=== PATIENT | female | born 1955 | race African-American/Black ===

== ENCOUNTER 2017-10-31 11:41 | Inpatient (IN) | payer BC, MEDICAID ==
[~2017-10-31] VITALS: Ht 160 cm; Wt 84.9 kg
--- NOTE | 2017-10-31 11:45 | NUR ---
PT TO ED ROOM 03. BIB RA FOR L SIDED CHEST PAIN AND INCREASING SOB. [id number]. A/A/O. SIDE RAILS UP. HOB ELEVATED. CONNECTED TO MONITOR. AWAITING EVALUATION BY ER PROVIDER.
--- NOTE | 2017-10-31 12:10 | NUR ---
AUTOM[employer]BILE SEAT COVER INSTALLER AT BEDSIDE FOR BLOOD DRAW.
[2017-10-31 12:11] LABS: BASOPHILS # (AUTO) 0.1 /CMM (0.0-0.2); BASOPHILS % (AUTO) 0.6 % (0.0-2.0); EOSINOPHILS # (AUTO) 0.4 /CMM (0.0-0.7); HEMATOCRIT 39 % (33-45); HEMOGLOBIN 13.2 g/dL (11.5-14.8); LYMPHOCYTES # (AUTO) 2.4 /CMM (0.8-4.8); LYMPHOCYTES % (AUTO) 24.7 % (20.0-44.0); MEAN CORPUSCULAR HEMOGLOBIN 28 PG (26.0-33.0); MEAN CORPUSCULAR HGB CONC 34 g/dl (31.0-36.0); MEAN CORPUSCULAR VOLUME 83 fL (82-100); MONOCYTES # (AUTO) 0.8 /CMM (0.1-1.30); NEUTROPHILS # (AUTO) 6.1 /CMM (1.8-8.9); NEUTROPHILS % (AUTO) 62.7 % (43.0-81.0); PLATELET COUNT (AUTO) 308 /CMM (150-450); RDW COEFFICIENT OF VARIATION 13.6 (11.5-15.0); WHITE BLOOD COUNT (AUTO) 9.8 K/uL (4.3-11.0)
[2017-10-31 12:23] LABS: CALCIUM, SERUM 9.4 mg/dL (8.5-10.1); CARBON DIOXIDE 25 mmol/L (21-32); CHLORIDE 105 mmol/L (98-107); CREATININE 1.3 mg/dL (0.6-1.3); GLUCOSE 184 mg/dL (74-106); POTASSIUM 3.6 mmol/L (3.5-5.1); SODIUM SERUM 137 mmol/L (136-145); UREA NITROGEN, BLOOD 18 mg/dL (7-18)
[2017-10-31 12:28] LABS: INR 0.9 (0.87-1.13)
[2017-10-31 12:32] LABS: TROPONIN I < 0.017 ng/mL (0.00-0.056)
[2017-10-31] MEDS ORDERED: FUROSEMIDE 40 MG/4 ML VIAL ONE (13:26)
[2017-10-31] MEDS ORDERED: NITROGLYCERIN PACKET 1 GM PACKET ONE (13:27)
[2017-10-31] MEDS ORDERED: ASPIRIN 81 MG TAB.CHEW ONE (13:27)
[2017-10-31] MEDS ORDERED: ASPIRIN 81 MG TAB.CHEW PO ONE (13:30)
[2017-10-31] MEDS ORDERED: NITROGLYCERIN PACKET 1 GM PACKET TOP ONE (13:30)
[2017-10-31] MEDS ORDERED: FUROSEMIDE 40 MG/4 ML VIAL IV ONE (13:30)
[2017-10-31] MEDS ORDERED: METO25TA20 PO (13:34)
[2017-10-31] MEDS ORDERED: CLOP75TA15 PO (13:34)
[2017-10-31] MEDS ORDERED: POTA10TA15 PO (13:34)
[2017-10-31] MEDS ORDERED: FURO-145 PO (13:34)
[2017-10-31] MEDS ORDERED: INSU100V7 SQ (13:34)
[2017-10-31] MEDS ORDERED: HYDR-4076 PO (13:34)
--- NOTE | 2017-10-31 13:44 | NUR ---
REPORT GIVEN TO MARTÍN [id number] TELE
[2017-10-31 14:00] VITALS: BP 153/90
--- NOTE | 2017-10-31 14:00 | NUR ---
RADAR TESTER RECEIVED PT. FROM EMERGENCY ROOM A&OX4. TELE MONITOR APPLIED TO PT. TELE READING IS SINUS RHYTHM 69 BPM WITH INVERTED T WAVES. INSTRUCTED PT. TO USE CALL LIGHT FOR ASSISTANCE. WILL CONTINUE TO ASSESS AND MONITOR.
[2017-10-31 15:30] VITALS: BP 153/90
[2017-10-31] MEDS ORDERED: DEXTROSE 50%-WATER 50 ML DISP.SYRIN IV PRN (15:30)
[2017-10-31] MEDS ORDERED: ONDANSETRON HCL/PF 4 MG/2 ML VIAL IVP PRN (15:30)
[2017-10-31] MEDS ORDERED: DOCUSATE SODIUM 100 MG CAPSULE PO PRN (15:30)
[2017-10-31] MEDS ORDERED: NITROGLYCERIN 0.4 MG/TAB BOTTLE SL PRN (15:30)
[2017-10-31] MEDS ORDERED: ACETAMINOPHEN 325 MG TABLET PO PRN (15:30)
[2017-10-31] MEDS ORDERED: MORPHINE SULFATE INJ 4 MG/ML DISP.SYRIN IV PRN (15:30)
[2017-10-31] MEDS ORDERED: LORAZEPAM 1 MG TABLET PO PRN (15:30)
[2017-10-31] MEDS ORDERED: *INSULIN REGULAR(HUMULIN R)HUM 100 UNIT/ML VIAL SQ PRN (15:30)
[2017-10-31] MEDS: METOPROLOL TARTRATE 25 MG TABLET PO SCH (16:52)
[2017-10-31] MEDS: BLOOD SUGAR DIAGNOSTIC 1 EACH STRIP IN SCH ×2 (17:45→21:31)
[2017-10-31] MEDS: INSULIN REGULAR, HUMAN 100 UNIT/ML 3 ML VIAL SQ PRN (17:48)
--- NOTE | 2017-10-31 19:00 | NUR ---
RN NOTES PT. HAD AN EPISODE OF LEFT SIDED CHEST PAIN BP WAS 81/49 PULSE 54 OXYGEN 97%, TEMP. 98.0F. PT. WAS POSITION FLAT ON THE BED. CHARGE NURSE WAS INFORMED, AND RECOMMENDED TO START PT. ON IV FLUIDS BOLUS. AFTER 5 MIN, BP RECHECKED WAS 116/50. PT. C/O SHARP PAIN IN MEDIAL CHEST AREA, PAIN RADIATING TO THE BACK. PT. REMOVED NITRO PATCH FROM CHEST. IV FLUIDS LEFT AT BEDSIDE. PT. WAS ENCOURAGED TO DRINK 1 CUP OF WATER. PT. IS A&OX4.
--- NOTE | 2017-10-31 19:30 | NUR ---
RN NOTES RECEIVED PATIENT IN BED AWAKE, AO X 3, ABLE TO MAKE NEEDS KNOWN. NO ACUTE DISTRESS NOTED. DENIES PAIN AT THIS TIME. TELE READING SINUS RHYTHM HR 61. IV SITE PATENT, INTACT; FLUSHED. NO SYMPTOMS OF HYPER/HYPOGLYCEMIA. ON LOW BED WITH BILATERAL UPPER SIDE RAILS UP. CALL BOSS WITHIN EASY REACH. WILL CONTINUE TO MONITOR.
--- NOTE | 2017-10-31 19:30 | NUR ---
RN NOTES RECEIVED PATIENT IN BED AWAKE, AO X 1. NO ACUTE DISTRESS NOTED. NO SIGNS OF PAIN NOTED. IV SITE PATENT, INTACT; FLUSHED. ON CONTACT ISOLATION FOR CRE KPNE IN URINE. ON LOW BED WITH BILATERAL UPPER SIDE RAILS UP. CALL BOSS WITHIN EASY REACH. WILL CONTINUE TO MONITOR. Addendum: 11/01/17 at 0413 by ROSHAN REIS RN DISREGARD ABOVE NOTES. SEE NEW NOTE.
[2017-10-31 20:00] VITALS: BP 124/74
--- NOTE | 2017-10-31 20:00 | NUR ---
PARTS SALES REPRESENTATIVE/CLOSING NOTES PT. IN BED A&OX3, BREATHING UNLABORED, AND EVENLY ON OXYGEN AT 2L/MIN. TELE READING SINUS RHYTHM WITH BRADYCARDIA. NO S/S OF ACUTE DISTRESS. IV SITE ON RIGHT THUMB IS INTACT AND PATENT. BED IS IN LOWEST AND LOCKED POSITION. 2 SIDE RAILS UP, AND INSTRUCTED PT. TO USE CALL LIGHT FOR ASSISTANCE. ALL NEEDS MET. WILL ENDORSE REPORT TO NURSE.
[2017-10-31] MEDS: INSULIN GLARGINE, 100 UNIT/ML CARTRIDGE SQ SCH (21:32)
[2017-11-01] VITALS: BP 148/70
[2017-11-01] MEDS: MORPHINE SULFATE INJ 4 MG/ML DISP.SYRIN IV PRN ×4 (00:59→21:18)
[2017-11-01] MEDS: BLOOD SUGAR DIAGNOSTIC 1 EACH STRIP IN SCH ×4 (06:33→21:12)
[2017-11-01] MEDS ORDERED: REGADENOSON 0.4 MG/5 ML DISP.SYRIN IVP ONE (07:00)
--- NOTE | 2017-11-01 07:00 | NUR ---
RN NOTES PATIENT ASLEEP, EASILY AROUSABLE. RESPIRATIONS EVEN. NO SIGNS OF PAIN NOTED. DUE MEDS GIVEN WITH NO ASE NOTED. NEEDS ATTENDED. SAFETY PRECAUTIONS AND COMFORT MEASURES IN PLACE. WILL GIVE REPORT TO DAY SHIFT FOR CONTINUITY OF CARE.
--- NOTE | 2017-11-01 07:40 | NUR ---
TELE/RN OPENING NOTE PATIENT IN BED IN STABLE CONDITION. A/O X 4. NO SIGNS OF ACUTE DISTRESS. NO COMPLAIN OF PAIN OR DISCOMFORT. ON TELE MONITOR WITH SINUS RHYTHM IN 80'S. ALL NEEDS ATTENDED TO. CALL LIGHT WITHIN REACH. WILL CONTINUE TO MONITOR TO ENSURE SAFETY.
[2017-11-01 07:54] LABS: BASOPHILS % (AUTO) 0.3 % (0.0-2.0); EOSINOPHILS # (AUTO) 0.4 /CMM (0.0-0.7); EOSINOPHILS % (AUTO) 4.9 % (0.0-6.0); HEMATOCRIT 39 % (33-45); HEMOGLOBIN 13.1 g/dL (11.5-14.8); LYMPHOCYTES # (AUTO) 2.1 /CMM (0.8-4.8); MEAN CORPUSCULAR HEMOGLOBIN 28 PG (26.0-33.0); MEAN CORPUSCULAR HGB CONC 34 g/dl (31.0-36.0); MEAN CORPUSCULAR VOLUME 84 fL (82-100); MONOCYTES # (AUTO) 0.6 /CMM (0.1-1.30); MONOCYTES % (AUTO) 8.3 % (2.0-12.0); NEUTROPHILS # (AUTO) 4.6 /CMM (1.8-8.9); NEUTROPHILS % (AUTO) 59.5 % (43.0-81.0); PLATELET COUNT (AUTO) 291 /CMM (150-450); RDW COEFFICIENT OF VARIATION 14.8 (11.5-15.0); RED BLOOD CELL COUNT(AUTO) 4.66 MIL/uL (4.0-5.2); WHITE BLOOD COUNT (AUTO) 7.8 K/uL (4.3-11.0)
[2017-11-01 08:03] LABS: CALCIUM, SERUM 9.2 mg/dL (8.5-10.1); CREATININE 1.4 mg/dL (0.6-1.3); MAGNESIUM 1.8 mg/dL (1.8-2.4); POTASSIUM 3.5 mmol/L (3.5-5.1)
[2017-11-01 08:05] LABS: INR 0.87 (0.87-1.13)
[2017-11-01] MEDS: FUROSEMIDE 20 MG TABLET PO SCH (08:32)
[2017-11-01] MEDS: hydrALAZINE HCL 25 MG TABLET PO SCH (08:32)
[2017-11-01] MEDS: METOPROLOL TARTRATE 25 MG TABLET PO SCH ×2 (08:32→16:57)
[2017-11-01] MEDS: CLOPIDOGREL BISULFATE 75 MG TABLET PO SCH (08:32)
[2017-11-01 08:44] VITALS: BP 148/73
[2017-11-01] MEDS ORDERED: LOSARTAN POTASSIUM 50 MG TABLET PO SCH (09:00)
[2017-11-01] MEDS ORDERED: ATORVASTATIN 10 MG TABLET PO SCH ×2 (09:00)
--- NOTE | 2017-11-01 10:30 | NUR ---
MS/RN SEEN BY DR BEACH PATIENT SEEN BY DR BEACH WITH NO ORDERS AT THIS TIME.
[2017-11-01 12:15] LABS: BILIRUBIN,DIRECT 0.1 mg/dL (0.0-0.2); BILIRUBIN,TOTAL 0.6 mg/dL (0.2-1.0); MAGNESIUM 1.9 mg/dL (1.8-2.4); PHOSPHORUS 4.2 mg/dL (2.5-4.9); TOTAL PROTEIN, SERUM 7.7 g/dL (6.4-8.2)
[2017-11-01 12:46] LABS: THYROID STIMULATING HORMONE 2.656 uIU/mL (0.358-3.74)
[2017-11-01] MEDS: INSULIN REGULAR, HUMAN 100 UNIT/ML 3 ML VIAL SQ PRN ×2 (12:51→17:30)
[2017-11-01 15:11] LABS: APPEARANCE,URINE CLEAR (CLEAR); BILIRUBIN,URINE NEGATIVE (NEGATIVE); BLOOD, URINE NEGATIVE Ery/uL (NEGATIVE); COLOR,URINE DARK YELLO (YELLOW); KETONES,URINE NEGATIVE (NEGATIVE); LEUKOCYTE ESTERASE ,URINE NEGATIVE (NEGATIVE); NITRITE, URINE POSITIVE (NEGATIVE); PH,URINE 5.5 (5.0-8.0); PROTEIN,URINE 2+ mg/dl (NEGATIVE); UGLUCOSE NEGATIVE (NEGATIVE); UROBILINOGEN,URINE 0.2 EU/dL (0.2)
[2017-11-01 15:37] LABS: BACTERIA,URINE Rare /HPF (None Seen); RBC,URINE 0-2 /HPF (0-2); SQUAMOUS EPITHELIAL CELL,UR Moderate /HPF (None Seen); WBC,URINE 0-2 /HPF (0-3)
[2017-11-01 16:06] VITALS: BP 125/67
--- NOTE | 2017-11-01 16:40 | NUR ---
MS/RN SPOKE WITH DR BEACH RELAYED STRESS TESTS RESULTS TO DR BEACH WITH NO ORDERS AT THIS TIME.
--- NOTE | 2017-11-01 18:19 | NUR ---
MS/RN CLOSING NOTE PATIENT IN BED IN STABLE CONDITION. A/O X 4. NO SIGNS OF ACUTE DISTRESS. NO COMPLAIN OF PAIN OR DISCOMFORT. ALL NEEDS ATTENDED TO. CALL LIGHT WITHIN REACH. WILL ENDORSE TO NEXT SHIFT FOR CONTINUITY OF CARE.
--- NOTE | 2017-11-01 19:30 | NUR ---
RN NOTE PATIENT IN BED IN STABLE CONDITION. A/O X 4. NO SIGNS OF ACUTE DISTRESS. NO COMPLAIN OF PAIN OR DISCOMFORT. ALL NEEDS ATTENDED TO. CALL LIGHT WITHIN REACH. WILL CONTINUE TO MONITOR TO ENSURE SAFETY.
[2017-11-01 20:00] VITALS: BP 141/61
[2017-11-01] MEDS: INSULIN GLARGINE, 100 UNIT/ML CARTRIDGE SQ SCH (21:13)
[2017-11-01 22:00] VITALS: BP 141/61
[2017-11-02] MEDS: MORPHINE SULFATE INJ 4 MG/ML DISP.SYRIN IV PRN ×2 (05:33→09:33)
[2017-11-02] MEDS: BLOOD SUGAR DIAGNOSTIC 1 EACH STRIP IN SCH ×2 (06:32→12:10)
--- NOTE | 2017-11-02 06:34 | NUR ---
MS RN NOTE PATIENT STABLE. SLEEPING WELL. NO S/S OF PAIN OR DISCOMFORT. ALL NEEDS MET AND ATTENDED TO. WILL ENDORSE TO DAY SHIFT FOR MANISH.
--- NOTE | 2017-11-02 07:10 | NUR ---
RN NOTES PT IS SITTING UP IN BED, RESTING COMFORTABLY. PT ON 2L O2, RESPIRATIONS ARE EVEN AND UNLABORED. IV ON R THUMB, INTACT AND SL. SAFETY MEASURES ARE IN PLACE, CALL LIGHT IS IN REACH. WILL CONTINUE TO MONITOR.
[2017-11-02 08:00] VITALS: BP 137/71
[2017-11-02] MEDS: CLOPIDOGREL BISULFATE 75 MG TABLET PO SCH (08:05)
[2017-11-02] MEDS: hydrALAZINE HCL 25 MG TABLET PO SCH (08:05)
[2017-11-02] MEDS: FUROSEMIDE 20 MG TABLET PO SCH (08:05)
[2017-11-02] MEDS: METOPROLOL TARTRATE 25 MG TABLET PO SCH (08:06)
[2017-11-02 08:42] VITALS: BP 122/64
[2017-11-02] MEDS ORDERED: LOSARTAN POTASSIUM 50 MG TABLET PO SCH (09:00)
[2017-11-02] MEDS: INSULIN REGULAR, HUMAN 100 UNIT/ML 3 ML VIAL SQ PRN (12:10)
--- NOTE | 2017-11-02 13:15 | NUR ---
RN NOTES PT WAS DISCHARGED HOME IN STABLE CONDITION, ACCOMPANIED BY HER SON IN A PRIVATE CAR. IV AND ID BAND WERE REMOVED. DISCHARGE PAPERS AND OUTPATIENT CLINIC APPOINTMENT WERE GIVEN TO PT. PT TOLD TO FOLLOW UP WITH DR. CONTRERAS WITHIN 1 WEEK OF DISCHARGE. PT VERBALIZED UNDERSTANDING. BELONGINGS WERE RETURNED TO PT.
== END 2017-11-02 13:15 | disposition home or self-care (01) | DRG 302 ==
LOC: ER 11:44 → TELE 13:25 → MED 11-01 09:11
PROVIDERS: ADMIT Internal Medicine; ATTEND Internal Medicine
DX: I25.709 Atherosclerosis of coronary artery bypass graft(s), unspecified, with unspecified angina pectoris (principal); I50.33 Acute on chronic diastolic (congestive) heart failure; E44.0 Moderate protein-calorie malnutrition; I11.0 Hypertensive heart disease with heart failure; E11.9 Type 2 diabetes mellitus without complications; J44.9 Chronic obstructive pulmonary disease, unspecified; I25.2 Old myocardial infarction; E66.9 Obesity, unspecified; E78.5 Hyperlipidemia, unspecified; F17.210 Nicotine dependence, cigarettes, uncomplicated; Z68.33 Body mass index [BMI] 33.0-33.9, adult; Z79.4 Long term (current) use of insulin; Z95.1 Presence of aortocoronary bypass graft; Z95.5 Presence of coronary angioplasty implant and graft
CPT/HCPCS: 36415; 71045-TC; 80048-TC; 80061-TC; 80076-TC; 80305; 81000-TC; 82150-TC; 82306; 82962-TC; 83690-TC; 83735-TC; 83880; 84100-TC; 84439-TC; 84443-TC; 84484-TC; 85025-TC; 85610-TC; 85730-TC; 87081-TC; 87086-TC; 87186-TC; 93307-TC; 94799-TC; A4606; A9502; J1940; J2270; J2785; J7040; Z7610